=== PATIENT | female | born 1990 | race Caucasian/White ===

== ENCOUNTER 2019-04-13 20:00 | Emergency (ER) | payer OTHER ==
[~2019-04-13] VITALS: Ht 175.3 cm; Wt 74.8 kg
[2019-04-13] MEDS ORDERED: PROZAC 10 MG CA10 MG PO (20:09)
[2019-04-13 20:47] LABS: ABSOLUTE NEUTROPHILS 5.1 thou/uL (1.4-8.2); EOSINOPHILS 0.8 % (0.0-3.0); HEMATOCRIT 36.6 % (37.0-47.0); HEMOGLOBIN 11.7 gm/dL (12.0-15.0); LYMPHOCYTES 24.2 % (24.0-44.0); MCH 25.8 pg (26.0-34.0); MCHC 31.9 g/dL (28.0-37.0); MCV 80.8 fL (80.0-100.0); MONOCYTES 7.9 % (1.0-8.0); PLATELET COUNT 318 thou/uL (150-400); POLYS 66.1 % (36.0-66.0); RBC 4.53 mil/uL (4.20-5.00); RDW 16.2 % (10.5-14.5); WBC 7.7 thou/uL (4.0-11.0)
[2019-04-13 20:59] LABS: ALBUMIN 4.5 g/dL (3.4-5.0); ANION GAP 11 mmol/L (7-16); BUN 12 mg/dL (7-18); CALCIUM 9.8 mg/dL (8.5-10.1); CHLORIDE 100 mmol/L (98-107); CO2 25 mmol/L (21-32); CREATININE 0.9 mg/dL (0.6-1.0); GLUCOSE 142 mg/dL (74-106); SGOT 34 U/L (15-37); SGPT 45 U/L (30-65); SODIUM 136 mmol/L (136-145); TOTAL BILIRUBIN 0.4 mg/dL (<0.1-1.0); TOTAL PROTEIN 8.7 g/dL (6.4-8.2); TROPONIN-I <0.06 ng/mL (<0.06)
[2019-04-13 21:10] LABS: POTASSIUM 2.9 mmol/L (3.5-5.1)
[2019-04-14 01:43] LABS: POTASSIUM 3.3 mmol/L (3.5-5.1); TROPONIN-I <0.06 ng/mL (<0.06)
[2019-04-14] MEDS ORDERED: LORAZEPAM 0.50.5 MG PO (02:02)
[2019-04-14 02:40] VITALS: BP 113/84
--- NOTE | 2019-04-14 08:24 | EKG ---
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: [facility] : 1990 Requested By: Alton Lombardi Order Number: [id number] MD: Juventino Thomas Measurements Intervals [place] Rate: 116 P: 75 DE: 128 QRS: 84 QRSD: 121 T: -34 QT: 362 QTc: 503 Interpretive Statements Sinus tachycardia Consider right atrial enlargement LVH with secondary repolarization abnormality Artifact in lead(s) I,aVR,aVL,V1,V2,V3,V4,V5,V6 No previous ECG available for comparison Electronically Signed On 04-14-2019 8:23:27 ALL PURPOSE CLERK by Juventino Thomas [email or web address] <ELECTRONICALLY SIGNED> By: Juventino Thomas MD 04/14/19 0823 17 17 Juventino Thomas MD /EPI
--- NOTE | 2019-04-14 08:24 | EKG ---
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: [facility] : 1990 Requested By: Alton Lombardi Order Number: [id number] MD: Juventino Thomas Measurements Intervals [place] Rate: 93 P: 44 ME: 120 QRS: 67 QRSD: 105 T: -37 QT: 349 QTc: 435 Interpretive Statements Sinus rhythm Borderline repolarization abnormality No previous ECG available for comparison Electronically Signed On 04-14-2019 8:23:57 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
== END 2019-04-14 02:43 | disposition home or self-care (01) ==
LOC: ER 20:00
PROVIDERS: Emergency Medicine
DX: E87.6 Hypokalemia (principal); F41.0 Panic disorder [episodic paroxysmal anxiety]; F17.210 Nicotine dependence, cigarettes, uncomplicated; Z88.8 Allergy status to other drugs, medicaments and biological substances